=== PATIENT | female | born 1990 | race Caucasian/White ===

== ENCOUNTER 2019-03-23 12:19 | Inpatient (IN) | payer OTHER, SELFPAY ==
[2019-03-23] VITALS (135 sets, daily range): BP systolic 135–183; BP diastolic 64–99; PULSE 66–106; RESP 18–20; TEMP 36.6–37.4; O2SAT 93–99; BMI 33.5
--- NOTE | ~2019-03-23 | US_ITS ---
US OB limited DATE: 03/23/2019 14:30 INDICATION: Check position TECHNIQUE: Real-time imaging and Doppler analysis COMPARISON: None FINDINGS: There is a live campa intrauterine gestation, fetus in vertex presentation, longitudina l lie. heart rate of 163 bpm. The placenta is anterior. IMPRESSION: Vertex presentation Reviewed, dictated and finalized at Location [facility]. Reviewed, dictated and finalized at location B. ER DRIVER IMPRESSION: Vertex presentation
[2019-03-23 13:05] LABS: Basophils Percent Auto 0.2 % (0.2-1.2); Eosinophils Absolute Auto 0.1 K/mm3 (0-0.3); Hematocrit 31.2 % (37.0-47.0); Hemoglobin 10.1 g/dL (12.0-15.0); Immature Granulocyte Absolute 0.02 K/mm3 (0.00-0.031); Immature Granulocyte Percent A 0.4 % (0-0.5); Lymphocytes Absolute Auto 1.32 K/mm3 (0.9-3.2); Lymphocytes Percent Auto 29.6 % (18.3-44.2); Mean Corpuscular HGB Conc 32.4 g/dl (32-36); Mean Corpuscular Hemoglobin 28.5 pg (26-34); Mean Corpuscular Volume 87.9 fl (80-100); Mean Platelet Volume 11.2 fl (7.4-10.4); Monocytes Absolute Auto 0.5 K/mm3 (0.1-0.6); Monocytes Percent Auto 10.5 % (2.6-8.5); Neutrophils Absolute Auto 2.6 K/mm3 (1.3-6.7); Neutrophils Percent Auto 57.3 % (45.5-73.1); Platelet Count Result 215 k/mm3 (150-375); Red Blood Count 3.55 M/mm3 (4.2-5.4); Red Cell Distribution Width 13.2 % (11.5-14.5); White Blood Count 4.5 K/mm3 (4.5-10.0)
[2019-03-23 13:09] LABS: Add Urine Microscopic? YES; Appearance Urine Cloudy (Clear); Bacteria Urine Trace /hpf; Bilirubin Urine Negative (Negative); Blood Urine Negative (Negative); Color Urine Yellow (Yellow); Glucose Urine UA Negative (Negative); Ketones Urine Negative (Negative); Leukocyte Esterase Ur Negative LEU/UL (NEGATIVE); Mucus Urine Few /lpf; Nitrate Urine Negative (Negative); Protein Urine 3+ mg/dL (Negative); RBC Urine 0-2 /hpf (0-2); Specific Grav Ur 1.025 (1.001-1.035); Squamous Epithelial Cell Urine Moderate /hpf (Few); Urobilinogen Urine Negative mg/dL (<2.0); WBC Urine 0-3 /hpf (0-3)
[2019-03-23 13:18] LABS: Alanine Aminotransferase 24 U/L (4-35); Albumin Level 3.1 g/dL (3.5-5.1); Alkaline Phosphatase 121 U/L (38-126); Aspartate Amino Transferase 27 U/L (14-36); Bilirubin,Total 0.1 mg/dL (0.2-1.3); Blood Urea Nitrogen 15 mg/dL (7-17); Calcium 9.1 mg/dL (8.4-10.2); Carbon Dioxide 19 mmol/L (22-30); Chloride 104 mmol/L (98-107); Estimated Glomerular Filt Rate > 60; Glucose 82 mg/dL (65-105); Sodium 131 mmol/L (137-145); Uric Acid 5.6 mg/dL (2.5-7.5)
[2019-03-23 14:44] LABS: Total Protein Urine Random > 600 mg/dL
[2019-03-23 14:54] LABS: Creatinine Urine 148.2 mg/dL
--- NOTE | 2019-03-23 15:10 | LDADM ---
This patient, Ibeth Guzmán, was admitted to unit room 117 on 03/23/19 at 12:19. Order for change to inpatient status and induction of labor received and pt was moved to labor room 109. Plans for labor, pain management and were discussed with patient. Patient/family oriented to hospital policies and general routines including ID bracelet, bed and alarms, visiting hours, pain management, procedures, bathroom and other care routines, personal items, smoking policy, room service/diet and guest tray routines, security routines, and visiting hours. Patient/Family are encouraged to report perceived risks to care and to ask questions if they do not understand what they are told or what they should do. See OBIX for further documentation.
[2019-03-23] MEDS: LACTATED RINGERS 1,000 ML 75 ML IV CONT (15:47)
[2019-03-23] MEDS: LABETALOL HCL INJ 100 MG/20 ML VIAL 20 MG IV PUSH (15:51)
[2019-03-23] MEDS: MAGNESIUM SULF 4 GM/WATER100ML 4 GM/100 ML BAG IVPB (15:58)
[2019-03-23] MEDS: LABETALOL HCL INJ 100 MG/20 ML VIAL 40 MG IV PUSH (16:00)
[2019-03-23] MEDS: DINOPROSTONE 10 MG VAG INSERT VAGINAL (16:14)
[2019-03-23] MEDS: MAGNESIUM SULF 20GM/WATER500ML 500 ML 50 MG IV CONT (16:30)
--- NOTE | 2019-03-23 17:31 | PC.NURSE ---
Preadmission information recopied from information documented by Walt Eason RN on 03/03/19 from V# [id number].
--- NOTE | 2019-03-23 17:57 | WPDANESEPP ---
Anes - Eval Pre Procedure Procedure: Labor epidural Date/Time: 03/23/19 17:57 Surgeon: Ruth Ann Preop Diagnosis: PIH Pre Op Diagnosis: Induction of Labor for elevated BP Patient Data Age: 28 Gender: F Height: 5 ft 3 in Weight: 85.75 kg Last Vital Signs Temp 99.3 F 03/23/19 17:00 Pulse 78 03/23/19 17:30 Resp 18 03/23/19 17:00 BP 145/87 H 03/23/19 17:30 Pulse Ox 98 03/23/19 17:54 Allergies Allergy/AdvReac Type Severity Reaction Status Date / Time caffeine Allergy Nausea and Verified 03/03/19 13:53 Vomiting aspirin AdvReac Unknown Verified 03/23/19 15:46 Home Medications Medication Instructions Recorded Confirmed Type PNV cmb#95-ferrous fumarate-FA 1 tablet PO DAILY 03/03/19 03/23/19 History [] fluticasone propion-salmeterol 1 inh INHALATION Q12H 03/23/19 03/23/19 History Laboratory Tests 03/23/19 03/23/19 03/23/19 12:51 12:51 12:51 WBC 4.5 K/mm3 K/mm3 (4.5-10.0) RBC 3.55 M/mm3 L M/mm3 (4.2-5.4) Hgb 10.1 g/dL L g/dL (12.0-15.0) Hct 31.2 % L % (37.0-47.0) MCV 87.9 fl fl (80-100) MCH 28.5 pg pg (26-34) MCHC 32.4 g/dl g/dl (32-36) RDW 13.2 % % (11.5-14.5) Plt Count 215 k/mm3 k/mm3 (150-375) MPV 11.2 fl H fl (7.4-10.4) Immature Gran % (Auto) 0.4 % % (0-0.5) Neut % (Auto) 57.3 % % (45.5-73.1) Lymph % (Auto) 29.6 % % (18.3-44.2) [place] % (Auto) 10.5 % H % (2.6-8.5) Eos % (Auto) 2.0 % % (0-4.4) Baso % (Auto) 0.2 % % (0.2-1.2) Lymph # (Auto) 1.32 K/mm3 K/mm3 (0.9-3.2) [place] # (Auto) 0.5 K/mm3 K/mm3 (0.1-0.6) Eos # (Auto) 0.1 K/mm3 K/mm3 (0-0.3) Baso # (Auto) 0.0 K/mm3 K/mm3 (0.0-0.1) Abs Immat Gran (auto) 0.02 K/mm3 K/mm3 (0.00-0.031) Absolute Neuts (auto) 2.6 K/mm3 K/mm3 (1.3-6.7) Absolute Nucleated RBC 0.0 K/mm3 K/mm3 (0.0-0.012) Nucleated RBC % 0.0 % % (0.0-0.2) Sodium 131 mmol/L L mmol/L (137-145) Potassium 4.0 mmol/L mmol/L (3.4-5.0) Chloride 104 mmol/L mmol/L (98-107) Carbon Dioxide 19 mmol/L L mmol/L (22-30) BUN 15 mg/dL mg/dL (7-17) Creatinine 0.70 mg/dL mg/dL (0.7-1.0) Estim Creat Clear Calc Not Reportable Estimated GFR > 60 (59 - ) Glucose 82 mg/dL mg/dL (65-105) Uric Acid 5.6 mg/dL mg/dL (2.5-7.5) Calcium 9.1 mg/dL mg/dL (8.4-10.2) Total Bilirubin 0.1 mg/dL L mg/dL (0.2-1.3) AST 27 U/L U/L (14-36) ALT 24 U/L U/L (4-35) Alkaline Phosphatase 121 U/L U/L (38-126) Total Protein 6.0 g/dL L g/dL (6.3-8.2) Albumin 3.1 g/dL L g/dL (3.5-5.1) Urine Color Yellow (Yellow) Urine Appearance Cloudy H (Clear) Urine pH 6.0 (5.0-9.0) Ur Specific [place] 1.025 (1.001-1.035) Urine Protein 3+ mg/dL H mg/dL (Negative) Urine Glucose (UA) Negative mg/dL mg/dL (Negative) Urine Ketones Negative mg/dL mg/dL (Negative) Ur Blood (Man) Negative (Negative) Urine Nitrate Negative (Negative) Urine Bilirubin Negative (Negative) Urine Urobilinogen Negative mg/dL mg/dL (<2.0) Ur Leukocyte Esterase Negative PAUL/UL PAUL/UL (NEGATIVE) Urine RBC 0-2 /hpf /hpf (0-2) Urine WBC 0-3 /hpf /hpf (0-3) Ur Squamous Epith Cells Moderate /hpf H /hpf (Few) Urine Bacteria Trace /hpf /hpf Hyaline Casts 1-2 /lpf /lpf (None) Urine Mucus Few /lpf H /lpf U Random Total Protein Urine Creatinine RPR Blood Type Antibody Screen 03/23/19 03/23/19 03/23/19 14:06 15:03 15:03
[2019-03-23] MEDS: ACETAMINOPHEN 500 MG TABLET 1000 MG PO (21:30)
[2019-03-23] MEDS: ONDANSETRON INJ 4 MG/2 ML VIAL IV PUSH (22:06)
--- NOTE | 2019-03-23 23:03 | HP_ITS ---
DATE OF SERVICE: 03/23/2019 CHIEF COMPLAINT: Swelling in legs and feet, headache, and blurry vision. HISTORY OF PRESENT ILLNESS: A 28-year-old, G12, P3-0-8-3, at 30 weeks and 3 days gestation, initially presented to routine care in the clinic with complaints of headaches, blurry vision, and increased swelling in her legs, feet, and her hands over the weekend. Headache is described as pounding behind her eyes in the front of her head. Blurry vision is sporadic and intermittent. In the clinic, her blood pressures were noted to be 136/90 and 135/100 on repeat. Otherwise, denies any chest pain, shortness of breath. Does report some cough. Denies nausea, vomiting, diarrhea, constipation, vaginal irritation, dysuria. PAST MEDICAL HISTORY: Asthma. PAST SURGICAL HISTORY: Dilation and curettage and tonsillectomy. SOCIAL HISTORY: Denies tobacco, alcohol, or drugs. 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 CURRENT MEDICATIONS: 1. Albuterol. 2. Fluticasone. 3. Salmeterol. ALLERGIES: ASPIRIN AND CAFFEINE. REVIEW OF SYSTEMS: 10-point review of systems completed. Pertinent positives and negatives as per the HPI. PHYSICAL EXAMINATION: GENERAL: No acute distress. Alert and oriented x3. PSYCHIATRIC: Appropriate mood and affect. CARDIOVASCULAR: Regular rate. RESPIRATORY: Nonlabored breathing. ABDOMEN: Soft, nontender, gravid. CERVICAL: Cervix is fingertip, 0% effaced, -3 station. REVIEW OF INVESTIGATIONS: Lab results show white blood count of 4.5, hemoglobin 10.1, hematocrit 31.2, platelet 215. Sodium 131, potassium 4.0, chloride 104, carbon dioxide 19, BUN 15, creatinine 0.7, AST 27, ALT 24. Urine protein/creatinine ratio is 4.05. Blood type A positive and GBS negative. ASSESSMENT: 1. 38-week term gestation. 2. Preeclampsia with severe features. 3. Asthma. DISCUSSION: Discussed with the patient findings and newly diagnosed preeclampsia with severe features. Considering that she is 38 weeks term gestation, this is a medical indication for induction of labor, but her cervix is not favorable for induction at this point, so thus discussed with the patient the need to ripen her cervix with Cervidil. Risks, benefits, and alternatives discussed. PLAN: Admit to Labor and Delivery. Monitor for severe range blood pressures, if severe range blood pressures can implement the hypertension in , antihypertensive protocol. Cervical ripening with Cervidil followed by Pitocin for induction of labor. Pain management as requested by the patient and Mag sulfate for seizure prophylaxis. D I MT: Norma DENNIS
[2019-03-24] VITALS (394 sets, daily range): BP systolic 128–196; BP diastolic 78–133; PULSE 71–111; RESP 18; TEMP 36.4–37.3; O2SAT 85–100
[2019-03-24] MEDS: MAGNESIUM SULF 20GM/WATER500ML 500 ML 50 MG IV CONT ×3 (02:52→22:58)
[2019-03-24] MEDS: ACETAMINOPHEN 500 MG TABLET 1000 MG PO ×2 (04:37→15:48)
[2019-03-24] MEDS: ONDANSETRON INJ 4 MG/2 ML VIAL IV PUSH ×3 (04:46→17:46)
[2019-03-24] MEDS: LACTATED RINGERS 1,000 ML 75 ML IV CONT ×2 (04:52→13:48)
[2019-03-24 07:59] LABS: Rapid Plasma Reagin Non-Reactive (NonReactive)
[2019-03-24] MEDS: LANOLIN (LANSINOH) 7.5 GM CREAM 1 APPLIC (12:46)
--- NOTE | 2019-03-24 17:48 | P.PNOB_ITS ---
OB - PN: Subj Subjective Date/time seen: 03/24/19 17:48 Pt reports nausea and headache. She was given tylenol and headache is improved but still presents. mild SOB and feels flushing/warmth from magnesium. OB - PN: Obj Data Labs CBC & Chem 7: 03/23/19 12:51 03/23/19 12:51 Labs: Laboratory Results - last 24 hr 03/23/19 15:03 RPR Non-reactive OB - PN A/P Assessment and Plan (1) PIH ( induced hypertension): Code(s): O13.9 - Gestational [-induced] hypertension without significant prote inuria, unspecified trimester Status: Acute Assessment and Plan: IOL - Pt in latent phase of labor, now 3cm dilated but remains thick - S/p cervidil overnight - Continue pitocin per protocol, currently at 16mU - AROM, clear occurred at 1745 on 03/24/19 - lots of fluid noted - IUPC placed to better monitor strength of contractions - heart tones reassuring, has moments of minimal variability w/ minimal accels; likely 2/2 sleep cycle and MgSO4 -- will monitor closely - Anticipate due to multiparity; however, if failure to progress (12 hrs of ROM + Pit) or NRFHT will have low thresh hold for pLTCS due to diagnosis of PEC w/ SF PEC w/ SF - Pt w/ severe range BP's s/p multiple rounds of labetalol IV - BPs in mild range, if persistently SBP>150, will start nifedipine 30mg PO qd - Pt w/ headache; s/p tylenol-- will monitor closely - Will repeat PEC labs and Mag level stat - Pt currently on MgS04 -- continue 2g/hr, if mag level elevated will decreased to 1g/hr - UOP adequate, will continue to monitor closely Time Spent With Patient Time: Total time spent is greater than 50% in coordination of care (as docume nted) at patient's floor/unit and/or counseling patient: Exam Const: General: no acute distress Resp: Effort & Inspection: normal respiratory effort Other: O2% > 95% on RA Cardio: Rate: regular rate : Manual OB Exam: dilated 3 cm, effaced 25% and station -2 Amniotic Fluid: clear Other: FHT: 125's/ mild to mod travis/ + accels/ no decels - cat 1 TOCO: ctx's q 1-3 minutes Membranes: AROM clear @ 1745 Pit: 16mU Magnesium sulfate: 2g/hr Urinary Catheter: Urinary Catheter: patent and draining and urine clear Psych: Appearance: grossly normal
[2019-03-24 19:12] LABS: Basophils Percent Auto 0.3 % (0.2-1.2); Eosinophils Absolute Auto 0.1 K/mm3 (0-0.3); Eosinophils Percent Auto 0.7 % (0-4.4); Hematocrit 38.8 % (37.0-47.0); Hemoglobin 12.4 g/dL (12.0-15.0); Immature Granulocyte Absolute 0.04 K/mm3 (0.00-0.031); Immature Granulocyte Percent A 0.5 % (0-0.5); Lymphocytes Absolute Auto 1.27 K/mm3 (0.9-3.2); Lymphocytes Percent Auto 17.3 % (18.3-44.2); Mean Corpuscular Hemoglobin 28.1 pg (26-34); Mean Corpuscular Volume 87.8 fl (80-100); Mean Platelet Volume 10.9 fl (7.4-10.4); Monocytes Absolute Auto 0.6 K/mm3 (0.1-0.6); Monocytes Percent Auto 7.5 % (2.6-8.5); Neutrophils Absolute Auto 5.4 K/mm3 (1.3-6.7); Neutrophils Percent Auto 73.7 % (45.5-73.1); Platelet Count Result 266 k/mm3 (150-375); Red Blood Count 4.42 M/mm3 (4.2-5.4); Red Cell Distribution Width 13.7 % (11.5-14.5); White Blood Count 7.4 K/mm3 (4.5-10.0)
[2019-03-24] MEDS: METOCLOPRAMIDE HCL INJ 10 MG/2 ML VIAL IV PUSH (19:17)
[2019-03-24 19:25] LABS: Alanine Aminotransferase 44 U/L (4-35); Albumin Level 3.5 g/dL (3.5-5.1); Alkaline Phosphatase 199 U/L (38-126); Aspartate Amino Transferase 44 U/L (14-36); Bilirubin,Total 0.4 mg/dL (0.2-1.3); Blood Urea Nitrogen 11 mg/dL (7-17); Calcium 7.1 mg/dL (8.4-10.2); Carbon Dioxide 20 mmol/L (22-30); Chloride 99 mmol/L (98-107); Estimated CRCL calculation 93 ml/min; Estimated Glomerular Filt Rate > 60; Glucose 86 mg/dL (65-105); Lactate Dehydrogenase 478 U/L (313-618); Magnesium 7.2 mg/dL (1.6-2.3); Potassium 3.9 mmol/L (3.4-5.0); Sodium 130 mmol/L (137-145); Uric Acid 6.3 mg/dL (2.5-7.5)
--- NOTE | 2019-03-24 22:16 | P.PNOB_ITS ---
OB - PN: Subj Subjective Date/time seen: 03/24/19 22:16 Feeling more pain. Headache significantly improved. OB - PN: Obj Data Labs CBC & Chem 7: 03/24/19 19:08 03/24/19 19:08 Labs: Laboratory Results - last 24 hr 03/23/19 03/24/19 03/24/19 15:03 19:08 19:08 WBC 7.4 RBC 4.42 Hgb 12.4 Hct 38.8 MCV 87.8 MCH 28.1 MCHC 32.0 RDW 13.7 Plt Count 266 MPV 10.9 H Immature Gran % (Auto) 0.5 Neut % (Auto) 73.7 H Lymph % (Auto) 17.3 L [place] % (Auto) 7.5 Eos % (Auto) 0.7 Baso % (Auto) 0.3 Lymph # (Auto) 1.27 [place] # (Auto) 0.6 Eos # (Auto) 0.1 Baso # (Auto) 0.0 Abs Immat Gran (auto) 0.04 H Absolute Neuts (auto) 5.4 Absolute Nucleated RBC 0.0 Nucleated RBC % 0.0 Sodium 130 L Potassium 3.9 Chloride 99 Carbon Dioxide 20 L BUN 11 Creatinine 0.80 Estim Creat Clear Calc 93 Estimated GFR > 60 Glucose 86 Uric Acid 6.3 Calcium 7.1 L Magnesium 7.2 H Total Bilirubin 0.4 AST 44 H ALT 44 H Alkaline Phosphatase 199 H Lactate Dehydrogenase 478 Total Protein 7.0 Albumin 3.5 RPR Non-reactive OB - PN A/P Plan Comments: IOL - Latent labor, change in exam to 4-5cm and significant effacement but prolonged IOL - FHT category 2, overall reassuring-- closely monitoring; nice accels noted w/ stimulation but late decels present; continue intrauterine resuscitation - Pt ksenia adequately w/ IUPC and pitocin per protocol - Anesthesia eval for better pain control - Pt felt to be asynclitic, will use peanut ball PEC w/ SF - BPs in mild range, no severe range - Continue MgSO4 2g/hr - Labs stable - UOP adequate - Pt asymptomatic - Continue closely monitoring Time Spent With Patient Time: Total time spent is greater than 50% in coordination of care (as documented) at patient's floor/unit and/or counseling patient: Exam : Other: Cervix: 4-5/75/-2 -- asyncylitic, mild caput FHT: 125's/ min to mod travis/ + accels/ occasional late decel - cat 2 IUPC: ctx's q2min; 200+ mvu in 10 min Membranes:AROM clear 1745 on 03/24/19 Pit: 10mU
[2019-03-24] MEDS: SODIUM CHLORIDE 0.9% IV 300 ML 600 ML I-UTERINE (23:51)
[2019-03-25] VITALS (69 sets, daily range): BP systolic 129–165; BP diastolic 79–121; PULSE 74–111; RESP 14–20; TEMP 36.2–37.3; O2SAT 87–100
[2019-03-25] MEDS: TERBUTALINE SULFATE 1 MG/ML VIAL 0.25 MG SUB-Q (00:40)
--- NOTE | 2019-03-25 02:04 | PM.OBPRVD ---
OB - Delivery Note Procedure Delivery date: 03/25/19 events: Pre-Eclampsia Intrapartal events: Extended Bradycardia Induction method: other Delivery augmentation: rupture of membranes and pitocin Delivery monitor: internal FHT and internal uterine Route of delivery: Indication for instrumentation: nonreassuring FHR tracing Specimen: Yes Estimated blood loss (mL): 1,100 Anesthesia type: General Disposition: PACU Complications: INDICATIONS: Ibeth is a 28-year-old G12 P 3083 admitted at 38 weeks for induction of labor secondary to preeclampsia with severe features. Her induction was started with Cervidil and continued with Pitocin and artificial rupture of membranes initially her blood pressures were in the severe range and required multiple labetalol IV pushes. throughout her labor course however her blood pressures and labs remained stable and her urine output was also normal. Ibeth progressed to 8 centimeters dilation however occasional late decels were noted. with intrauterine resuscitation heart rate tracing remained reassuring. However, severe decel to the 60's was noted; position change, IV fluid hydration, oxygen supplementation, and discontinue of Pitocin did not return heart rate to a normal level, and patient was called for emergency . FINDINGS: Emergent primary low transverse section secondary to non-reassuring heart tones under general anesthesia. Male fetus in direct occiput posterior position noted, umbilical cord looped near body; weighing 5lb 10oz, 19inches long, delivered at 0105 on 03/25/2019, apgars 2/6/7. Bilateral uterine incision extensions to include the uterine arteries. Additional pitocin given to help achieve better uterine tone. Final counts correct at end of the procedure. EBL 1100cc DESCRIPTION OF THE PROCEDURE: In the operating room heart tones were obtained and noted to be in the 90s and nikunj to 115. patient reported adequate pain control and decision was made to proceed with general anesthesia. patient was then prepped and draped in the usual sterile fashion after instruments were counted and she received 2 grams Ancef. skin incision was then made using the scalpel and carried down to the underlying fascia. the fascia was nicked on either side of the midline and extended in the amalia hansen fashion. the rectus muscles were in the midline and the peritoneum was entered bluntly. uterine landmarks were identified and a transverse uterine incision was made and extended laterally with blunt traction. the fetus was then delivered without complications. spontaneous cry was noted and the cord was clamped and cut and he was handed off to the awaiting pediatric team. a portion of the cord was then collected for cord gases and the remaining cord blood was sent for typing. she delivered a male weighing 5 pounds 10 ounces measuring 19 inches long with Apgars 2, 6, 7. he was noted to be an the direct occiput posterior position with the umbilical cord looped near his body. the placenta delivered without complications. the uterus was then wiped clean of all clots and debris. brisk bleeding was noted from the left lower aspect of the uterine incision as well as the right lower aspect of the uterine incision; Grijalva clamps were placed to allow for better visualization. it was noted that the uterine incision had extended to lacerate bilateral uterine arteries. the uterine incision was then closed using 0 Vicryl in a running interlocking fashion and good hemostasis was noted. A 2nd layer imbricating suture using 0 Vicryl was then performed. The uterine incision was inspected and bleeding was noted from the right corner. Two figure of 8 sutures using 0 Vicryl were placed and good hemostasis was achieved. The bilateral adnexa were examined and noted to be within normal limits. The pelvis was then cleared of all clots and debris. The inci
--- NOTE | 2019-03-25 04:17 | OBPPTRN ---
Patient transferred to post room #281 via stretcher. Support person present. Oriented to unit, room, information board, rooming in, admission packet and security measures. Patient verbalizes understanding. Infant in level 2 nursery.
[2019-03-25 06:58] LABS: Alanine Aminotransferase 34 U/L (4-35); Albumin Level 2.7 g/dL (3.5-5.1); Alkaline Phosphatase 139 U/L (38-126); Aspartate Amino Transferase 47 U/L (14-36); Bilirubin,Total 0.2 mg/dL (0.2-1.3); Blood Urea Nitrogen 12 mg/dL (7-17); Carbon Dioxide 19 mmol/L (22-30); Chloride 98 mmol/L (98-107); Estimated CRCL calculation 75 ml/min; Estimated Glomerular Filt Rate > 60; Glucose 114 mg/dL (65-105); Lactate Dehydrogenase 678 U/L (313-618); Potassium 4.2 mmol/L (3.4-5.0); Sodium 126 mmol/L (137-145); Uric Acid 6.5 mg/dL (2.5-7.5)
--- NOTE | 2019-03-25 08:00 | PC.NURSE ---
PT introductions made and plan of care discussed per post op c section, PIH, breast feeding, daily care activities, magnesium sulfate. PT verbalized understanding of such care.
[2019-03-25] MEDS: ALBUTEROL SULFATE (*SP) AEROSOL 1 PUFF 2 PUFF INHALATION (09:36)
[2019-03-25 10:15] LABS: Basophils Percent Auto 0.1 % (0.2-1.2); Eosinophils Percent Auto 0.1 % (0-4.4); Hematocrit 28.9 % (37.0-47.0); Hemoglobin 9.3 g/dL (12.0-15.0); Immature Granulocyte Absolute 0.03 K/mm3 (0.00-0.031); Immature Granulocyte Percent A 0.4 % (0-0.5); Lymphocytes Absolute Auto 1.03 K/mm3 (0.9-3.2); Lymphocytes Percent Auto 15.4 % (18.3-44.2); Mean Corpuscular HGB Conc 32.2 g/dl (32-36); Mean Corpuscular Hemoglobin 28.4 pg (26-34); Mean Corpuscular Volume 88.1 fl (80-100); Mean Platelet Volume 10.6 fl (7.4-10.4); Monocytes Absolute Auto 0.4 K/mm3 (0.1-0.6); Monocytes Percent Auto 6.3 % (2.6-8.5); Neutrophils Absolute Auto 5.2 K/mm3 (1.3-6.7); Neutrophils Percent Auto 77.7 % (45.5-73.1); Platelet Count Result 236 k/mm3 (150-375); Red Blood Count 3.28 M/mm3 (4.2-5.4); Red Cell Distribution Width 13.7 % (11.5-14.5); White Blood Count 6.7 K/mm3 (4.5-10.0)
[2019-03-25] MEDS: DEXTROSE 5%/0.45% SOD CHL 1,000 ML 125 ML IV CONT (11:29)
[2019-03-25] MEDS: POLYSACCHARIDE IRON COMPLEX 150 MG CAPSULE PO ×2 (11:51→17:24)
[2019-03-25] MEDS: DOCUSATE SODIUM 100 MG CAPSULE PO ×2 (11:51→17:24)
[2019-03-25] MEDS: SIMETHICONE 80 MG TAB.CHEW PO ×4 (11:51→20:19)
[2019-03-25] MEDS: MULTIVIT/MIN/PREN/FOL AC/IRON TABLET 1 TAB PO (11:51)
[2019-03-25] MEDS: KETOROLAC 30 MG/ML VIAL (*BKC) (12:29)
--- NOTE | 2019-03-25 12:30 | PC.NURSE ---
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 documented on flow sheet
--- NOTE | 2019-03-25 14:00 | PC.NURSE ---
PT c/o heaviness on her chest and difficulty lifting arms off bed and feels nauseated and dizzy and like an elephant was on her chest. Spo2 97-99 and pt alert and awake and no shortness of breath. BP 145/[address] Busch was called. Calcium Gluconate was administered slowly and Magnesium d/c.
[2019-03-25] MEDS: CALCIUM GLUCONATE 1,000 MG/10 ML VIAL 1000 MG (14:02)
[2019-03-25 14:35] LABS: Hemoglobin 9.3 g/dL (12.0-15.0); Mean Corpuscular HGB Conc 32.1 g/dl (32-36); Mean Corpuscular Hemoglobin 28.1 pg (26-34); Mean Corpuscular Volume 87.6 fl (80-100); Mean Platelet Volume 10.8 fl (7.4-10.4); Platelet Count Result 242 k/mm3 (150-375); Red Blood Count 3.31 M/mm3 (4.2-5.4); Red Cell Distribution Width 13.9 % (11.5-14.5); White Blood Count 6.3 K/mm3 (4.5-10.0)
[2019-03-25 14:47] LABS: Alanine Aminotransferase 33 U/L (4-35); Albumin Level 2.8 g/dL (3.5-5.1); Alkaline Phosphatase 124 U/L (38-126); Aspartate Amino Transferase 51 U/L (14-36); Bilirubin,Total 0.2 mg/dL (0.2-1.3); Blood Urea Nitrogen 13 mg/dL (7-17); Calcium 6.2 mg/dL (8.4-10.2); Carbon Dioxide 21 mmol/L (22-30); Chloride 96 mmol/L (98-107); Estimated CRCL calculation 83 ml/min; Estimated Glomerular Filt Rate > 60; Glucose 101 mg/dL (65-105); Lactate Dehydrogenase 848 U/L (313-618); Magnesium 7.6 mg/dL (1.6-2.3); Potassium 4.1 mmol/L (3.4-5.0); Sodium 125 mmol/L (137-145); Uric Acid 6.7 mg/dL (2.5-7.5)
--- NOTE | 2019-03-25 15:00 | PC.NURSE ---
PT states feeling better. PT denies heaviness on her chest and is able to move all extremities without difficulty. V/S stable. PT requesting to eat.
[2019-03-25] MEDS: MAGNESIUM SULF 20GM/WATER500ML 500 ML 50 MG IV CONT (16:02)
--- NOTE | 2019-03-25 16:36 | PM.OBPNVD ---
OB - PN: Subj Subjective Date/time seen: 03/25/19 16:36 28yo [id number] @ 38wks s/p pLTCS due to NRFHT under [place], POD#0 Ibeth is doing ok. She reports feeling very anxious about her blurry vision, feeling dizzy, flushed, and like an elephant is sitting on her chest . She denies REYNOLDS. Her pain is well controlled with PO meds. She has minimal PO intake but is tolerating water w/o N/V. Has not ambulated due to mag/bernard. UOP is adequate. Vaginal bleeding is minimal. No flatus or BM. No fever, chills, CP. OB - PN: Obj Data Labs CBC & Chem 7: 03/25/19 14:31 03/25/19 14:31 Labs: Laboratory Results - last 24 hr 03/24/19 03/24/19 03/25/19 19:08 19:08 06:00 WBC 7.4 RBC 4.42 Hgb 12.4 Hct 38.8 MCV 87.8 MCH 28.1 MCHC 32.0 RDW 13.7 Plt Count 266 MPV 10.9 H Immature Gran % (Auto) 0.5 Neut % (Auto) 73.7 H Lymph % (Auto) 17.3 L [place] % (Auto) 7.5 Eos % (Auto) 0.7 Baso % (Auto) 0.3 Lymph # (Auto) 1.27 [place] # (Auto) 0.6 Eos # (Auto) 0.1 Baso # (Auto) 0.0 Abs Immat Gran (auto) 0.04 H Absolute Neuts (auto) 5.4 Absolute Nucleated RBC 0.0 Nucleated RBC % 0.0 Sodium 130 L 126 L Potassium 3.9 4.2 Chloride 99 98 Carbon Dioxide 20 L 19 L BUN 11 12 Creatinine 0.80 1.00 Estim Creat Clear Calc 93 75 Estimated GFR > 60 > 60 Glucose 86 114 H Uric Acid 6.3 6.5 Calcium 7.1 L 6.0 L Magnesium 7.2 H Total Bilirubin 0.4 0.2 AST 44 H 47 H ALT 44 H 34 Alkaline Phosphatase 199 H 139 H Lactate Dehydrogenase 478 678 H Total Protein 7.0 6.0 L Albumin 3.5 2.7 L 03/25/19 03/25/19 03/25/19 10:06 14:31 14:31 WBC 6.7 6.3 RBC 3.28 L 3.31 L Hgb 9.3 L D 9.3 L Hct 28.9 L 29.0 L MCV 88.1 87.6 MCH 28.4 28.1 MCHC 32.2 32.1 RDW 13.7 13.9 Plt Count 236 242 MPV 10.6 H 10.8 H Immature Gran % (Auto) 0.4 Neut % (Auto) 77.7 H Lymph % (Auto) 15.4 L [place] % (Auto) 6.3 Eos % (Auto) 0.1 Baso % (Auto) 0.1 L Lymph # (Auto) 1.03 [place] # (Auto) 0.4 Eos # (Auto) 0.0 Baso # (Auto) 0.0 Abs Immat Gran (auto) 0.03 Absolute Neuts (auto) 5.2 Absolute Nucleated RBC 0.0 Nucleated RBC % 0.0 Sodium 125 L Potassium 4.1 Chloride 96 L Carbon Dioxide 21 L BUN 13 Creatinine 0.90 Estim Creat Clear Calc 83 Estimated GFR > 60 Glucose 101 Uric Acid 6.7 Calcium 6.2 L Magnesium 7.6 H Total Bilirubin 0.2 AST 51 H ALT 33 Alkaline Phosphatase 124 Lactate Dehydrogenase 848 H Total Protein 6.0 L Albumin 2.8 L OB - PN A/P Assessment and Plan (1) PIH ( induced hypertension): Code(s): O13.9 - Gestational [-induced] hypertension without significant proteinuria, unspecified trimester Status: Acute Assessment and Plan: - meeting appropriate milestones - 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-- pain controlled on PO meds - symptoms continues to persist despite discontinuation of CHIEF CONTROLLER; likely 2/2 hypocalcemia and magnesium sulfate; pt upset and worried about her symptoms--- labs repeated stat and show stability/improvement in values (h/h stable, cr downtrending) - will discontinue magnesium as she is at a therapeutic level - bps in mild range--- will start nifedipine 30mg PO daily -- first dose today - will monitor BP's and symptoms very closely - ok to advance diet, ambulate, and remove bernard - anticipate d/c home on POD#3 Time Spent With Patient Time: Total time spent is greater than 50% in coordination of care (as documented) at patient's floor/unit and/or counseling patient: Review of Systems Review of Systems: All systems reviewed & are unremarkable except as noted in HPI and below (HPI) Exam Const: General: comfortable, no acute distress, alert and awake Resp: Effort & Inspection: normal respiratory effort Auscultation: clear to auscultation bilaterally
[2019-03-25] MEDS: IBUPROFEN 600 MG TABLET (18:00)
[2019-03-25] MEDS: NIFEdipine 30 MG TAB.ER.24 PO (18:04)
[2019-03-26] VITALS: BP 135/88; PULSE 97; RESP 18; TEMP 36.9; O2SAT 96
[2019-03-26] MEDS: IBUPROFEN 600 MG TABLET PO ×3 (04:14→19:24)
[2019-03-26 04:15] VITALS: BP 142/88; PULSE 99; RESP 18; TEMP 36.9; O2SAT 97
[2019-03-26 05:44] LABS: Basophils Percent Auto 0.2 % (0.2-1.2); Eosinophils Absolute Auto 0.1 K/mm3 (0-0.3); Eosinophils Percent Auto 1.5 % (0-4.4); Hematocrit 24.8 % (37.0-47.0); Immature Granulocyte Absolute 0.03 K/mm3 (0.00-0.031); Immature Granulocyte Percent A 0.5 % (0-0.5); Lymphocytes Absolute Auto 1.17 K/mm3 (0.9-3.2); Lymphocytes Percent Auto 20.1 % (18.3-44.2); Mean Corpuscular HGB Conc 32.3 g/dl (32-36); Mean Corpuscular Hemoglobin 28.6 pg (26-34); Mean Corpuscular Volume 88.6 fl (80-100); Mean Platelet Volume 10.7 fl (7.4-10.4); Monocytes Absolute Auto 0.4 K/mm3 (0.1-0.6); Monocytes Percent Auto 7.2 % (2.6-8.5); Neutrophils Absolute Auto 4.1 K/mm3 (1.3-6.7); Neutrophils Percent Auto 70.5 % (45.5-73.1); Nucleated Red Blood Cells Perc 0.3 % (0.0-0.2); Platelet Count Result 216 k/mm3 (150-375); Red Cell Distribution Width 14.3 % (11.5-14.5); White Blood Count 5.8 K/mm3 (4.5-10.0)
--- NOTE | 2019-03-26 07:00 | PC.NURSE ---
PT introductions made and plan of care discussed per post op c section, pain management, breast feeding, daily care activities, PIH symptoms. PT verbalized understanding of such care.
[2019-03-26 07:15] VITALS: BP 107/64; PULSE 90; RESP 12; TEMP 36.9; O2SAT 97
[2019-03-26] MEDS: MULTIVIT/MIN/PREN/FOL AC/IRON TABLET 1 TAB PO (08:40)
[2019-03-26] MEDS: NIFEdipine 30 MG TAB.ER.24 PO (08:40)
[2019-03-26] MEDS: POLYSACCHARIDE IRON COMPLEX 150 MG CAPSULE PO ×2 (08:40→16:09)
[2019-03-26] MEDS: DOCUSATE SODIUM 100 MG CAPSULE PO (08:40)
[2019-03-26] MEDS: SIMETHICONE 80 MG TAB.CHEW PO ×3 (08:41→16:09)
[2019-03-26 12:07] VITALS: BP 141/82; PULSE 111; RESP 14; TEMP 36.9; O2SAT 97
--- NOTE | 2019-03-26 12:52 | PM.OBPNVD ---
OB - PN: Subj Subjective Date/time seen: 03/26/19 12:52 Ibeth is feeling much better this morning since discontinuing the magnesium. She reports pain is controlled with medications. She is tolerating regular diet w/o N/V. She has passed flatus and is voiding. She reports minimal ambulation but does have mild dizziness (moving slow helps). Her blood pressures have been much better; denies vision changes, REYNOLDS, CP, or SOB. Her bleeding is minimal and she is breast feeding without issue. She does not was her son circumcised. OB - PN: Obj Data Labs CBC & Chem 7: 03/26/19 04:58 03/25/19 14:31 Labs: Laboratory Results - last 24 hr 03/25/19 03/25/19 03/26/19 14:31 14:31 04:58 WBC 6.3 5.8 RBC 3.31 L 2.80 L Hgb 9.3 L 8.0 L Hct 29.0 L 24.8 L MCV 87.6 88.6 MCH 28.1 28.6 MCHC 32.1 32.3 RDW 13.9 14.3 Plt Count 242 216 MPV 10.8 H 10.7 H Immature Gran % (Auto) 0.5 Neut % (Auto) 70.5 Lymph % (Auto) 20.1 [place] % (Auto) 7.2 Eos % (Auto) 1.5 Baso % (Auto) 0.2 Lymph # (Auto) 1.17 [place] # (Auto) 0.4 Eos # (Auto) 0.1 Baso # (Auto) 0.0 Abs Immat Gran (auto) 0.03 Absolute Neuts (auto) 4.1 Absolute Nucleated RBC 0.0 Nucleated RBC % 0.3 H Sodium 125 L Potassium 4.1 Chloride 96 L Carbon Dioxide 21 L BUN 13 Creatinine 0.90 Estim Creat Clear Calc 83 Estimated GFR > 60 Glucose 101 Uric Acid 6.7 Calcium 6.2 L Magnesium 7.6 H Total Bilirubin 0.2 AST 51 H ALT 33 Alkaline Phosphatase 124 Lactate Dehydrogenase 848 H Total Protein 6.0 L Albumin 2.8 L OB - PN A/P Assessment and Plan (1) PIH ( induced hypertension): Code(s): O13.9 - Gestational [-induced] hypertension without significant proteinuria, unspecified trimester Status: Acute Assessment and Plan: POD#1 - Meeting appropriate milestones; encouraged ambulation w/ help/slowly (to avoid symptoms of anemia) - Labs/vitals/exam stable and reassuring - PEC w/ SF: BP's in normal range, s/p MgSO4, continue Adalat 30mg PO daily - Anemia of acute blood loss: H/H stable, partially diluted today -- minimal lochia, continue Iron BID, stay hydrated - Anticipate D/C home on POD#2-3 Time Spent With Patient Time: Total time spent is greater than 50% in coordination of care (as documented) at patient's floor/unit and/or counseling patient: Review of Systems Constitutional: Constitutional: Denies chills and Denies fatigue Cardiovascular: Cardiovascular: Denies rapid heart rate Respiratory: Respiratory: Denies cough and Denies dyspnea Gastrointestinal: Gastrointestinal: Denies nausea and Denies vomiting Genitourinary: Genitourinary: Denies dysuria Neurologic: Denies headache(s) Exam Const: General: comfortable, no acute distress, alert, awake and acute distress Resp: Effort & Inspection: normal respiratory effort Auscultation: clear to auscultation bilaterally Cardio: Rate: tachycardic GI: Auscultation: normal bowel sounds Other: mildly distended, normal bowel sounds, soft, tympanic, appropriately tender to palpation, incision covered with clean dressing Psych: Appearance: grossly normal Affect: normal affect Attitude: cooperative
[2019-03-26 16:30] VITALS: BP 142/91; PULSE 112; RESP 16; TEMP 37.3; O2SAT 98
--- NOTE | 2019-03-26 17:17 | PC.NURSE ---
On 03/26/19, the student, [ Christal Oconnell], provided care and completed [facility] documentation on this patient. I have reviewed the student's documentation and agree with the findings.
[2019-03-26] MEDS: ALBUTEROL SULFATE (*SP) AEROSOL 1 PUFF 2 PUFF INHALATION (20:02)
[2019-03-26 20:05] VITALS: BP 141/94; PULSE 110; RESP 18; TEMP 37.3; O2SAT 99
[2019-03-27] MEDS: IBUPROFEN 600 MG TABLET PO ×3 (03:43→20:07)
[2019-03-27 05:59] VITALS: BP 136/91; PULSE 94; RESP 16; O2SAT 98
[2019-03-27 07:40] VITALS: BP 133/81; PULSE 93; RESP 14; TEMP 36.9; O2SAT 95
[2019-03-27] MEDS: DOCUSATE SODIUM 100 MG CAPSULE PO ×2 (07:42→16:23)
[2019-03-27] MEDS: MULTIVIT/MIN/PREN/FOL AC/IRON TABLET 1 TAB PO (07:42)
[2019-03-27] MEDS: POLYSACCHARIDE IRON COMPLEX 150 MG CAPSULE PO ×2 (07:42→16:24)
[2019-03-27] MEDS: NIFEdipine 30 MG TAB.ER.24 PO (07:42)
--- NOTE | 2019-03-27 09:12 | P.DS_ITS ---
DS: Diagnosis Admitting Diagnosis Admitting Diagnosis: Gestational [-induced] hypertension without signif icant proteinuria, unspecified trimester OB - DS: Summary OB Procedures : None OB Procedures Intrapartum: OB Procedures: : None Peripartum Data Procedures: Procedures Operation Date: 03/25/19 01:45 Actual Procedures Side Surgeon p Section Martine Busch MD Time Spent with Patient Time attestation: Total time spent providing and/or coordinating discharge services: DS: Data Data Completed and Pending Completed studies during hospitalization: Pending at discharge 03/25/19 01:05 Surgical [PTH] Routine Discharge Plan Discharge Attending physician on discharge: Jere May Discharging Clinician: Jere May Anticipated Discharge Date/Time: 03/28/19 09:00 Patient Disposition: Home, Self-Care Activity: as tolerated Diet: as tolerated Wound Care Instructions: follow printed instructions Patient Instructions: Antibiotic Form Stand Alone Forms: General Discharge Information Follow-up/Referrals: Rachelle Vallecillo DO [Physician] - 1 Week Discharge Medications: New hydrocodone-acetaminophen 5-325 mg Tablet 1 tab PO Q4H PRN (Reason: Pain Rated 4-6) Qty: 30 RF: 0 ibuprofen 600 mg Tablet 600 mg PO Q6H PRN (Reason: Pain Rated 1-3) Qty: 30 RF: 0 nifedipine [Procardia XL] 30 mg Tablet Extended Release 24hr 30 mg PO DAILY Qty: 30 RF: 0 Continued PNV cmb#95-ferrous fumarate-FA [] 28 mg iron- 800 mcg Tablet 1 tablet PO DAILY RF: 0 fluticasone propion-salmeterol 500-50 mcg/dose Blister With Device 1 inh INHALATION Q12H RF: 0 No Action albuterol sulfate 90 mcg/actuation Hfa Aerosol Inhaler 2 puff INHALATION QID PRN (Reason: Dyspnea) RF: 0 Date of admission: 03/23/19 12:19 Primary Care Provider: Zac Contreras Admitting Provider: Rachelle Vallecillo Attending physician on admission: Rachelle Vallecillo
[2019-03-27 11:35] VITALS: BP 135/84; PULSE 106
[2019-03-27 16:25] VITALS: BP 153/90; PULSE 107
[2019-03-27 20:10] VITALS: BP 138/87; PULSE 111; RESP 16; TEMP 36.9; O2SAT 100
[2019-03-27] MEDS: SIMETHICONE 80 MG TAB.CHEW PO (20:43)
[2019-03-27 23:26] VITALS: BP 142/88; PULSE 102
--- NOTE | 2019-03-28 05:40 | PC.NURSE ---
Patient requested to sleep through the night without interruption, her last BP was taken on 03/27/18 @ 2326. Attempted to take BP @ 0540 when bringing baby back for feeding, patient refused to have BP taken at this time.
[2019-03-28] MEDS: IBUPROFEN 600 MG TABLET PO (05:49)
[2019-03-28] MEDS: MULTIVIT/MIN/PREN/FOL AC/IRON TABLET 1 TAB PO (08:19)
[2019-03-28] MEDS: POLYSACCHARIDE IRON COMPLEX 150 MG CAPSULE PO (08:19)
[2019-03-28] MEDS: NIFEdipine 30 MG TAB.ER.24 PO (08:19)
[2019-03-28 08:20] VITALS: BP 155/89; PULSE 85; RESP 20; TEMP 36.9
[2019-03-28] MEDS: DOCUSATE SODIUM 100 MG CAPSULE PO (08:20)
--- NOTE | 2019-03-28 10:30 | PC.NURSE ---
Patient instructed on viewing the discharge video Mother & Baby Care, The First Two Weeks online. Patient was given the opportunity and encouraged to ask questions. Patient verbalized understanding of information shared and has been given the mother/baby guide for home reference.
[2019-03-30 09:40] VITALS: BP 147/90; PULSE 90; RESP 20; TEMP 36.6; O2SAT 99
--- NOTE | 2019-04-01 07:47 | PM.OBDSVD ---
DS: Diagnosis Admitting Diagnosis Admitting Diagnosis: Encounter for supervision of normal , unspecified, third trimester OB - DS: Summary OB Procedures : None OB Procedures Intrapartum: Spontaneous Vag Delivery OB Procedures: : None Peripartum Data Procedures: Procedures Operation Date: 03/25/19 01:45 Actual Procedures Side Surgeon p Section Martine Busch MD Time Spent with Patient Time attestation: Total time spent providing and/or coordinating discharge services: DS: Data Data Completed and Pending Completed studies during hospitalization: Pending at discharge 03/25/19 01:05 Surgical [PTH] Routine Discharge Plan Discharge Attending physician on discharge: Jere aMy Consulting providers: Martine Busch ; Dhruv Silva Discharging Clinician: Jere May Anticipated Discharge Date/Time: 03/28/19 09:00 Patient Disposition: Home, Self-Care Activity: as tolerated Diet: as tolerated Wound Care Instructions: follow printed instructions Discharge Instructions: Education: Mom and Baby Guide and Preeclampsia Handout Given to: Mother Follow-Up: Call your delivering provider's office for an appointment to be seen in: 1 Week Mom and baby should come to the [facility] for the follow-up appointment. Appointment Date/Time: March 30, 2019 at 10:00 am What to expect at your follow-up visit: Blood Pressure Check Physical Assessment Call [phone] if you are unable to keep your appointment time. BREAST CARE: 1. Wear a snug supportive bra. 2. For engorgement discomfort: Breast Feeding: A. Apply warm moist washcloths B. Express milk as needed to relieve engorgement C. Wear loose clothing 3. For sore nipples: A. Identify correct latch-on B. Apply warm moist washcloths before and after nursing C. Air dry nipples after nursing D. May apply Lansinoh cream to nipples ABDOMINAL INCISION: (if applicable) 1. Allow incision to air dry 2. Do NOT use lotions for powders on your incision 3. When showering, allow soap and water to run over the incision, but do not wash incision EPISIOTOMY/PERINEAL CARE: 1. Until bleeding stops, use your bacilio bottle after urinating 2. Change your pad frequently throughout the day 3. No tub baths until seen by your physician - You may shower ACTIVITY: 1. Rest as much as possible. 2. Do not exercise or lift anything heavier than your baby (such as laundry or other children.) 3. Avoid stairs or driving as much as possible. 4. Do not put anything into the vagina. No douching, tampons, or sexual activity until seen by physician. NOTIFY PHYSICIAN IF YOU HAVE ANY QUESTIONS OR IF ANY OF THE FOLLOWING SYMPTOMS OCCUR: 1. If your incision becomes red, swollen, or more painful than what you have experienced in the hospital. 2. If your vaginal bleeding becomes foul smelling. 3. If your vaginal bleeding becomes more heavy than a period or if your bleeding changes from pink to bright red. However, you may pass an occasional walnut-sized clot once or twice for the first week . 4. If you experience a sharp, shooting pain in you calves. 5. If you discover a hard, reddened area on your breast or if you experience flu-like symptoms. DIET: 1. Eat regular, well-balanced meals. 2. Drink plenty of fluids daily. If , drink to thirst. Stand Alone Forms: General Discharge Information Follow-up/Referrals: Rachelle Vallecillo DO [Physician] - 1 Week Discharge Medications: New hydrocodone-acetaminophen 5-325 mg Tablet 1 tab PO Q4H PRN (Reason: Pain Rated 4-6) Qty: 30 RF: 0 ibuprofen 600 mg Tablet 600 mg PO Q6H PRN (Reason: Pain Rated 1-3) Qty: 30 RF: 0 nifedipine [Procardia XL] 30 mg Tablet Extended Release 24hr 30 mg PO DAILY Qty: 30 RF: 0 Continued PNV cmb#95-ferrous fumarate-FA [Prenat
== END 2019-03-28 12:40 | disposition home or self-care (01) | DRG 540 ==
LOC: ANHOBOP 12:23 → ANHOBPP 12:23 → ANHOBOP 13:48 → ANHLDR 14:11 → ANHOB2 03-27 09:14 → ANHLDR 03-31 09:46 → ANHOB2 03-31 09:46
PROVIDERS: Obstetrics & Gynecology; Admitting Provider Obstetrics & Gynecology; PCP Emergency Medicine; Visit Provider Obstetrics & Gynecology
PROC: 10D00Z1 Extraction of Products of Conception, Low, Open Approach (ICD-10-PCS; CPT 59514; principal; 2019-03-25 01:45)
DX: O14.14 Severe pre-eclampsia complicating childbirth (principal); O99.214 Obesity complicating childbirth; Z3A.38 38 weeks gestation of pregnancy; Z37.0 Single live birth; O76 Abnormality in fetal heart rate and rhythm complicating labor and delivery; Z23 Encounter for immunization; O99.513 Diseases of the respiratory system complicating pregnancy, third trimester; J45.909 Unspecified asthma, uncomplicated; E66.9 Obesity, unspecified; O69.81X0 Labor and delivery complicated by cord around neck, without compression, not applicable or unspecified; O64.0XX0 Obstructed labor due to incomplete rotation of fetal head, not applicable or unspecified; I97.51 Accidental puncture and laceration of a circulatory system organ or structure during a circulatory system procedure; Y65.8 Other specified misadventures during surgical and medical care
CPT/HCPCS: 36415; 76815; 80053; 81001; 82570; 83615; 83735; 84156; 84550; 85025; 85027; 86592; 86850; 86900; 86901; 87086; 88307; 94640; A9270; J0610; J1170; J1885; J2405; J2590; J2765; J2795; J3010; J3105; J3475; J7030; J7120

== ENCOUNTER 2021-05-29 11:10 | Outpatient (CLI) | payer OTHER, SELFPAY ==
--- NOTE | ~2021-05-29 | XR_ITS ---
EXAMINATION: XR chest 2V Exam Date/Time: 05/29/2021 11:16 CDT CLINICAL HISTORY: J45.909 - Unspecified asthma,SOB, Comparison: 07/01/2018. RESULT: Lines, tubes, and devices: None. Lungs and pleura: Clear. Cardiomediastinal silhouette: Stable cardiomediastinal silhouette. Other: No acute osseous or upper abdominal finding. IMPRESSION: No acute cardiopulmonary process. Reviewed, dictated and finalized at location K.
--- NOTE | 2021-05-30 07:15 | WPDPFTINT ---
PFT Procedure Performed PFT Procedure Performed Spirometry with Pre/Post Bronchodilator Plethysmography (Lung Vol) Diffusing Cap (DLCO) Flow Vol Loop PFT Interpretation This is a pulmonary function test with pre and post-bronchodilator spirometry, plethysmography and diffusing capacity. The test was performed and results interpreted in accordance with the 2019 and 2005 ATS/ERS Task Force guidelines respectively using the Global Lung Function Initiative-2012 reference equations. Patient demonstrated good effort and cooperation. Reproducibility criteria were met. The quality of the pre bronchodilator spirometry maneuver was Grade A and post bronchodilator spirometry maneuver was Grade A. Findings: Spirometry: The contour the inspiratory and expiratory flow tracing are normal. The pre bronchodilator FVC is 3.75 L, 107% predicted. The pre bronchodilator FEV1 is 3.11 L, 106% predicted. The FEV1: FVC ratio was 83%. The post bronchodilator FVC is 3.58 L, representing a 5% decrease. The post bronchodilator FEV1 is 3.05 L could, representing a 2% decrease. The post bronchodilator FEV1: FVC ratio was 85%. Plethysmography: The total lung capacity is 4.91 L, 104% predicted. The functional residual capacity is 2.40 L, 93% predicted. The residual volume is 1.15 L, 86% predicted. Diffusing capacity: The diffusion capacity unadjusted for hemoglobin and carboxyhemoglobin is 18.8, 79% predicted. The diffusing capacity adjusted for alveolar volume is 4.48, 90% predicted. Impression: The spirometry is normal without evidence of an obstructive abnormality. There is no significant improvement after inhaling a single dose of albuterol. The lung volumes are normal. The diffusing capacity is normal. There are no prior studies for comparison
== END 2021-05-29 11:11 | disposition home or self-care (01) ==
LOC: ANHPFT 11:11
PROVIDERS: PCP Internal Medicine; Visit Provider Clinical Nurse Specialist
DX: J45.909 Unspecified asthma, uncomplicated (principal)
CPT/HCPCS: 71046; 94060; 94726; 94729

== ENCOUNTER 2021-09-12 14:04 | Outpatient (CLI) | payer OTHER, SELFPAY ==
[2021-09-12 18:55] LABS: Anion Gap 10 mmol/L (8-16); Blood Urea Nitrogen 17 mg/dL (7-17); Calcium 9.5 mg/dL (8.4-10.2); Carbon Dioxide 25 mmol/L (22-30); Chloride 104 mmol/L (98-107); Estimated Glomerular Filt Rate > 60; Glucose 82 mg/dL (65-110); Potassium 4.3 mmol/L (3.4-5.0); Sodium 139 mmol/L (137-145)
[2021-09-12 19:25] LABS: Erythrocyte Sedimentation Rate 8 mm/hr (0-20)
[2021-09-12 19:32] LABS: Vitamin D 25 Hydroxy 59.9 ng/mL
[2021-09-12 20:12] LABS: Rheumatoid Factor < 8.6 IU/ML (<12)
== END 2021-09-12 14:05 | disposition home or self-care (01) ==
LOC: ANHGOSHLAB 14:06
PROVIDERS: PCP Internal Medicine; Visit Provider Clinical Nurse Specialist
DX: E55.9 Vitamin D deficiency, unspecified (principal); M25.50 Pain in unspecified joint
CPT/HCPCS: 36415; 80048; 82306; 85652; 86038; 86430

== ENCOUNTER 2022-05-24 10:30 | Outpatient (CLI) | payer OTHER, SELFPAY ==
--- NOTE | ~2022-05-24 | XR_ITS ---
XR chest 2V DATE: 05/24/2022 10:45 INDICATION: Shortness of breath for 2 weeks TECHNIQUE: 2 views COMPARISON: 05/29/2021 PA and lateral chest FINDINGS: Normal heart size. No hilar or mediastinal enlargement. No pulmonary infiltrate or consolid ation, pleural effusion or pulmonary vascular congestion or pneumothorax. Included skeletal structures are unremarkable. IMPRESSION: No active cardiopulmonary disease Reviewed, dictated and finalized at location A.
== END 2022-05-24 10:31 | disposition home or self-care (01) ==
PROVIDERS: PCP Internal Medicine; Visit Provider Internal Medicine
DX: R06.02 Shortness of breath (principal)
CPT/HCPCS: 71046

== ENCOUNTER 2022-06-04 12:05 | Outpatient (CLI) | payer OTHER, SELFPAY ==
--- NOTE | 2022-06-04 12:11 | ECHO_ITS ---
Patient Info Name: Ibeth Guzmán Age: 32 years : 1990 Gender: Female Ht: 62 in Wt: 140 lbs BSA: 1.68 m2 HR: 83 bpm BP: 128 / 86 mmHg Technical Quality: Good Exam Date: 06/04/2022 12:33 PM Exam Location: [facility] Patient Status: Outpatient Admit Date: 06/04/2022 Staff Ordering Physician: Jack Baldwin DO Doper Operator: Carmela Crane RDCS Attending Provider: Jack Baldwin DO Referring Physician: Denny MIJARES; Exam Type: CA echo doppler color flow Study Info Indications R06.02 - Shortness of breath Complete two-dimensional, color flow and Doppler transthoracic echocardiogram is performed. Summary 1. Complete two-dimensional, color flow and Doppler transthoracic echocardiogram is performed. 2. Left ventricular chamber dimension is normal. 3. Left ventricular systolic function is normal, estimated at 65-70%. 4. The left ventricular diastolic function is normal. 5. E/e' 5 is not elevated. 6. Global longitudinal strain is normal at -18.0%. 7. No pulmonary hypertension, estimated pulmonary arterial systolic pressure is 25 mmHg. Left Ventricle E/e' 5 is not elevated. Global longitudinal strain is normal at -18.0%. Left ventricular chamber dimension is normal. Left ventricular systolic function is normal, estimated at 65-70%. The left ventricular diastolic function is normal. Right Ventricle Right ventricular systolic function is normal and with normal TAPSE 2.3 cm. Right ventricular chamber dimension is normal. Left Atria Left atrial chamber dimension is normal. Right Atria Right atrial chamber dimension is normal. Aortic Valve The aortic valve is trileaflet. There is no aortic valve stenosis. There is no aortic valve regurgitation. Pulmonic Valve There is no pulmonic regurgitation. Mitral Valve There is no mitral valve stenosis. There is no mitral valve regurgitation. Tricuspid Valve There is no tricuspid valve regurgitation. No pulmonary hypertension, estimated pulmonary arterial systolic pressure is 25 mmHg. Pericardium/Pleural There is no pericardial effusion. Inferior Vena Cava Normal inferior vena cava with >50% collapse upon inspiration consistent with normal right atrial pressure, 5 mmHg. Aorta The aortic root size at the sinus of Valsalva is normal. Left Ventricular Outflow Tract Name Value Normal LVOT 2D LVOT Diameter 1.9 cm LVOT Doppler LVOT Peak Gradient 5 mmHg LVOT Mean Gradient 3 mmHg LVOT VTI 22 cm LVOT VTI/AV VTI Ratio 0.9 LVOT Stroke Volume 66 ml LVOT CO 6.2 l/min LVOT CI 3.7 l/min/m2 Pulmonic Valve Name Value Normal RVOT Doppler RVOT Peak Gradient
--- NOTE | 2022-06-13 12:33 | WPDHOLTEREM ---
Holter/Event Monitor Holter/Event Monitor Date of procedure: 06/04/22 Holter/Event Procedure: 48 Hr Holter Monitor Indications: shortness of breath Conclusion: 1. 48 hour holter monitor on 06/04/22. 2. Underlying rhythm is sinus rhythm. HR range 48-160 bpm; average HR 84 bpm. HR at 160 bpm was at 13:02. 3. There are 19 premature supraventricular complexes. No supraventricular tachycardia. 4. There is 1 premature ventricular complex. No ventricular tachycardia. 5. No sinoatrial or atrioventricular blocks. No significant pauses greater than 2 seconds. 6. Patient reports symptoms of coughing, nausea, dizziness, extra beats which demonstrate sinus rhythm, HR range 65-122 bpm.
== END 2022-06-04 12:06 | disposition home or self-care (01) ==
LOC: ANHCARD 12:08
PROVIDERS: PCP Internal Medicine; Visit Provider Internal Medicine
DX: R06.02 Shortness of breath (principal); R00.0 Tachycardia, unspecified
CPT/HCPCS: 93225; 93226; 93306

== ENCOUNTER 2022-06-12 10:28 | Outpatient (CLI) | payer OTHER, SELFPAY ==
--- NOTE | ~2022-06-12 | CT_ITS ---
EXAMINATION: CT diagnostic chest w con DATE: 06/12/2022 11:08 INDICATION: Shortness of breath TECHNIQUE: Transaxial computed tomographic images of the chest were obtained after the administration of 75 cc of Omnipaque 350 intravenous contrast. The dose-length product (DLP) was 133.27 mGy-cm. Ite rative reconstruction was used. COMPARISON: None FINDINGS: The lungs are free of acute opacities. No pleural effusion or pneumothorax. No pathological ly enlarged thoracic lymph nodes are identified. The heart size is normal. Visualized osseous structu res are unremarkable. IMPRESSION: 1. No acute cardiopulmonary abnormality. Reviewed, dictated and finalized at location L.
== END 2022-06-12 10:29 | disposition home or self-care (01) ==
PROVIDERS: PCP Internal Medicine; Visit Provider Clinical Nurse Specialist
DX: R06.02 Shortness of breath (principal)
CPT/HCPCS: 71260; Q9967

== ENCOUNTER 2022-06-15 11:04 | Outpatient (CLI) | payer OTHER, SELFPAY ==
[2022-06-15 11:18] LABS: Basophils Absolute Auto 0.1 K/mm3 (0.0-0.1); Basophils Percent Auto 0.9 % (0.2-1.2); Eosinophils Absolute Auto 0.4 K/mm3 (0-0.3); Eosinophils Percent Auto 6.8 % (0-4.4); Hematocrit 42.8 % (37.0-47.0); Hemoglobin 13.7 g/dL (12.0-15.0); Immature Granulocyte Absolute 0.01 K/mm3 (0.00-0.031); Immature Granulocyte Percent A 0.2 % (0-0.5); Lymphocytes Absolute Auto 2.16 K/mm3 (0.9-3.2); Lymphocytes Percent Auto 39.4 % (18.3-44.2); Mean Corpuscular Hemoglobin 29.1 pg (26-34); Mean Corpuscular Volume 90.9 fl (80-100); Mean Platelet Volume 9.2 fl (7.4-10.4); Monocytes Absolute Auto 0.4 K/mm3 (0.1-0.6); Neutrophils Absolute Auto 2.5 K/mm3 (1.3-6.7); Neutrophils Percent Auto 44.7 % (45.5-73.1); Platelet Count Result 300 k/mm3 (150-375); Red Blood Count 4.71 M/mm3 (4.2-5.4); Red Cell Distribution Width 12.7 % (11.5-14.5); White Blood Count 5.5 K/mm3 (4.5-10.0)
== END 2022-06-15 11:05 | disposition home or self-care (01) ==
LOC: ANHLAB 11:05
PROVIDERS: PCP Internal Medicine; Visit Provider Physician Assistant
DX: J45.909 Unspecified asthma, uncomplicated (principal); R00.0 Tachycardia, unspecified; R06.02 Shortness of breath; T78.40XA Allergy, unspecified, initial encounter
CPT/HCPCS: 36415; 82785; 84443; 85025; 86003

== ENCOUNTER 2022-07-10 08:42 | Outpatient (CLI) | payer OTHER, SELFPAY ==
--- NOTE | 2022-07-10 10:11 | PCRCNOTE ---
METHACHOLINE CHALLENGE NOT COMPLETED TODAY. PATIENT IS CURRENTLY . THIS IS A RELATIVE CONTRAINDICATION. CONTACTED PHARMACY TO DETERMINE IF THERE IS ANY INFORMATION ON THIS CONTRAINDICATION NOTED WITH THE METHACHOLINE. SILVIO STATED THERE IS NO SIGNIFICANT DATA TO RULE OUT THE RISK OF HARM TO IF INGESTED THRU NURSING, THEREFORE IT IS CONTRAINDICATED. AFTER DISCUSSING WITH PATIENT AND SPOUSE, WE WILL RESCHEDULE WHEN NO LONGER NURSING. CARD GIVEN TO PATIENT WITH # TO RESCHEDULE WHEN READY.
== END 2022-07-10 08:43 | disposition home or self-care (01) ==
LOC: ANHPFT 08:44
PROVIDERS: PCP Internal Medicine; Visit Provider Physician Assistant
DX: R06.02 Shortness of breath (principal); Z53.09 Procedure and treatment not carried out because of other contraindication
CPT/HCPCS: 99199; J7674